=== PATIENT | male | born 1960 | race Caucasian/White ===

== ENCOUNTER 2018-04-07 01:37 | Emergency (ER) | payer OTHER ==
[~2018-04-07] VITALS: Ht 177.8 cm; Wt 88.5 kg
[2018-04-07] MEDS ORDERED: HYDROMORPHONE 2MG/ML 2 MG/ML ML IV STA (02:23)
[2018-04-07] MEDS ORDERED: ONDANSETRON HCL INJ 2MG/ML 2ML 2 MG/ML VIAL IV STA (02:23)
[2018-04-07 02:37] LABS: BASOPHILS % 0.5 % (0.0-1.0); EOSINOPHILS % 0.4 % (0.0-6.0); HEMATOCRIT 35.6 % (38.2-49.6); HEMOGLOBIN 12.7 g/dL (14.0-18.0); LYMPHOCYTES % 13.1 % (18.0-39.1); MEAN CORPUSCULAR HEMOGLOBIN 34.4 pg (28-32); MEAN CORPUSCULAR HGB CONC 35.7 g/dL (31-35); MEAN CORPUSCULAR VOLUME 96.5 fL (81-99); MONOCYTES # (AUTO) 0.5 (0.2-0.8); MONOCYTES % 6.3 % (4.4-11.3); NEUTROPHILS # (AUTO) 6.1 (2.1-6.9); NEUTROPHILS % 79.4 % (38.7-80.0); PLATELET COUNT 157 x10e3/uL (140-360); RED BLOOD COUNT 3.69 x10e6/uL (4.3-5.7); RED CELL DISTRIBUTION WIDTH 12.8 % (11.7-14.4)
[2018-04-07 02:57] LABS: ALBUMIN 4.2 g/dL (3.5-5.0); ALBUMIN/GLOBULIN RATIO 1.4 (0.8-2.0); ANION GAP 20.3 mmol/L (8-16); CALCIUM 9.4 mg/dL (8.4-10.2); CREATININE, SERUM 1.46 mg/dL (0.72-1.25); POTASSIUM 3.3 mmol/L (3.5-5.1)
--- NOTE | 2018-04-07 03:00 | Diagnostic Imaging Report ---
EXAM: CT Abdomen and Pelvis WITHOUT contrast INDICATION: Pain COMPARISON: None. TECHNIQUE: Abdomen and Pelvis was scanned utilizing a multidetector helical scanner without the use of IV contrast. Coronal and sagittal reformations were obtained. IV CONTRAST: None COMPLICATIONS: None RADIATION DOSE: Total DLP: 586 mGy*cm Estimated effective dose: (DLP x 0.015 x size factor) mSv CTDIvol has been reviewed. It is below the limits set by the Radiation Protocol Committee (RPC). Appropriate CT dose reduction techniques were utilized. FINDINGS: Abdomen: Lung Bases: No acute findings. Solid Organs: Multiple gallstones. Best seen on coronal images minimal inflammation about the gallbladder. Mild hepatic steatosis present. Bilateral renal hypodensities incompletely evaluated given lack of IV contrast. Bilateral nonobstructing renal calculi. No ureteral calculi noted. Solid organs otherwise unremarkable. Upper GI Tract: Small hiatal hernia. Decompressed stomach limits evaluation. No small bowel obstructive changes. Vascularity: Minimal vascular calcifications with no aortic aneurysm. Lymph Nodes: No enlarged lymph nodes. Other: None. Pelvis: Bladder: Partially decompressed, limiting evaluation. Other: None. Colon: There are a few scattered diverticula with no CT evidence of diverticulitis. Appendix not inflamed. Bones: L5-S1 degenerative disc changes. IMPRESSION: 1. Cholelithiasis with questionable surrounding stranding raising question of cholecystitis. Clinical/laboratory correlation recommended. 2. Bilateral nonobstructing renal calculi, largest left 13 mm. No ureteral calculi. 3. Bilateral renal hypodensities incompletely evaluated. Nonemergent outpatient renal ultrasound recommended. 4. Diverticulosis. Signed by: Dr. Flako Roy MD on 04/07/2018 2:56 AM
[2018-04-07] MEDS ORDERED: PIPER-TAZ 3.375 GM 50 ML IV STA (03:26)
[2018-04-07 05:29] VITALS: BP 116/79
== END 2018-04-07 05:39 | disposition home or self-care (01) ==
LOC: ER 01:37
DX: R10.11 Right upper quadrant pain (principal); R11.2 Nausea with vomiting, unspecified; K80.00 Calculus of gallbladder with acute cholecystitis without obstruction
CPT/HCPCS: 36415; 74176; 80053; 82150; 83690; 85025; 93005; 99284; J1170; J2405; J2543